=== PATIENT | male | born 1965 | race Caucasian/White ===

== ENCOUNTER 2019-01-27 08:57 | Emergency (ER) | payer BC ==
--- NOTE | 2019-01-27 09:55 | UC ---
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 -cough is minimla. no runny nose. no ear ache. no ST - History of Current Complaint Chief Complaint: UCRespiratory Stated Complaint: BODY ACHES,FEVER,CHILLS Time Seen by Provider: 01/27/19 09:20 Pain Intensity: 8 - Allergies/Home Medications Allergies/Adverse Reactions: Allergies Allergy/AdvReac Type Severity Reaction Status Date / Time No Known Allergies Allergy Verified 01/27/19 09:25 Home Medications: Home Medications Lisinopril TAB* [Prinivil TAB 10 MG*] 10 mg PO DAILY 01/27/19 [History Confirmed 01/27/19] Naproxen Sodium [Aleve] 440 mg PO AC PRN 01/27/19 [History Confirmed 01/27/19] PMH/Surg Hx/FS Hx/Imm Hx Previously Healthy: Yes Cardiovascular History: Hypertension - Surgical History Surgical History: Yes Surgery Procedure, Year, and Place: right ankle fx with metal - Family History Known Family History: Positive: Hypertension - Social History Alcohol Use: Weekly Alcohol Amount: 6 Substance Use Type: None Smoking Status (MU): Never Smoked Tobacco Review of Systems All Other Systems Reviewed And Are Negative: Yes Constitutional: Positive: Fatigue Skin: Positive: Negative Eyes: Positive: Negative ENT: Positive: Negative Respiratory: Positive: Cough Cardiovascular: Positive: Negative Gastrointestinal: Positive: Negative Genitourinary: Positive: Negative Motor: Positive: Negative Neurovascular: Positive: Negative Musculoskeletal: Positive: Negative Neurological: Positive: Negative Psychological: Positive: Negative Is Patient Immunocompromised?: No Physical Exam Triage Information Reviewed: Yes Appearance: Ill-Appearing - mild. appears tired Vital Signs: Initial Vital Signs Temp 99.5 F 01/27/19 09:17 Pulse 88 01/27/19 09:17 Resp 24 01/27/19 09:17 BP 147/86 01/27/19 09:17 Pulse Ox 96 01/27/19 09:17 Vital Signs Reviewed: Yes Eye Exam: Normal ENT Exam: Normal ENT: Positive: Pharyngeal erythema, TMs normal, Uvula midline. Negative: Nasal congestion, Sinus tenderness Dental Exam: Normal Neck exam: Normal Neck: Positive: Supple, Nontender, No Lymphadenopathy Respiratory Exam: Normal Respiratory: Positive: Lungs clear, Normal breath sounds, No respiratory distress, No accessory muscle use. Negative: Crackles, Rhonchi, Stridor, Wheezing Cardiovascular Exam: Normal Cardiovascular: Positive: RRR, No Murmur Abdominal Exam: Normal Abdomen Description: Positive: Nontender, Soft Musculoskeletal Exam: Normal Neurological Exam: Normal Psychological Exam: Normal Skin Exam: Normal Respiratory Course/Dx - Course Course Of Treatment: Influenza A positive - Differential Dx/Diagnosis Differential Diagnosis/HQI/PQRI: Bronchitis, Influenza, Lower Resp Infection Provider Diagnosis: Influenza A Discharge - Sign-Out/Discharge Documenting (check all that apply): Patient Departure All imaging exams completed and their final reports reviewed: No Studies - Discharge Plan Condition: Stable Disposition: HOME Prescriptions: Oseltamivir CAP* [Tamiflu CAP*] 75 mg PO BID #10 cap Patient Education Materials: Influenza (DC) Referrals: Denver Najera MD [Primary Care Provider] - Additional Instructions: Your influenza is positive. Drink plenty of fluids and rest. Aleve and/or tyelnol will be helpful for symptoms. she should not have direct contact with your Mom or your . They should contact their providers to be evaluated for possible tamifl prophylaxis. You are considered to be contagious until 24 hours after you are fever free without medication. - Billing Disposition and Condition Condition: STABLE Disposition: Home
[2019-01-27 10:10] LABS: Influenza A Molecular POSITIVE (Negative)
[2019-01-27 14:01] VITALS: BP 147/86
== END 2019-01-27 10:53 | disposition home or self-care (01) ==
LOC: UCCORT 08:57
DX: J10.1 Influenza due to other identified influenza virus with other respiratory manifestations (principal); I10 Essential (primary) hypertension; Z79.899 Other long term (current) drug therapy
CPT/HCPCS: 99202; G0463